=== PATIENT | male | born 1950 ===

== ENCOUNTER 2022-04-23 10:39 | Inpatient (IN) ==
[2022-04-23] MEDS ORDERED: NS 0.9% 1000 ml BAG 1,000 ML IV ONE (11:24)
[2022-04-23 12:04] LABS: ABS Basophils 0.1 10^3/ul (0-0.2); ABS Monocytes 1.3 10^3/ul (0-0.8); ABS Neutrophils 12.3 10^3/ul (1.5-7.7); Hematocrit 47 % (42-52); Hemoglobin 15.8 g/dL (14.0-18.0); Mean Corpuscular HGB Conc 34 g/dL (31-36); Mean Corpuscular Hemoglobin 30 pg (27-31); Mean Corpuscular Volume 89 fL (80-94); Mean Platelet Volume 9.1 fL (7.4-10.4); Nucleated Red Blood Cells % 0.1; Platelet Count 161 10^3/uL (150-450); Red Blood Count 5.31 10^6 /uL (4.18-5.48); Red Cell Distribution Width 15 % (10-15); White Blood Count 14.7 10^3/uL (3.5-10.8)
[2022-04-23 12:45] LABS: Albumin 4.1 g/dL (3.2-5.2); Albumin/Globulin Ratio 1.5 (1-3); Calcium 8.9 mg/dL (8.6-10.3); Globulin 2.8 g/dL (2-4); Potassium 4.3 mmol/L (3.5-5.0); Total Bilirubin 4.4 mg/dL (0.2-1.0); Total Protein 6.9 g/dL (6.4-8.9); eGFR CKD-EPI 59.3 (>60)
[2022-04-23] MEDS ORDERED: Iodixanol (CONTRAST) 320 MG/ML 100 ML SDV IV ONE (13:03)
[2022-04-23 13:36] LABS: High Sensitivity Troponin 1 Hr 16 pg/mL (<20)
[2022-04-23] MEDS ORDERED: ceFOXitin 1 GM in NS 0.9% 50 ML 50 ML IVPB ONE (14:21)
[2022-04-23] MEDS ORDERED: Lactated Ringers 1000 ml BAG 1,000 ML IV ONE (14:47)
[2022-04-23 15:50] LABS: Urine Appearance Clear; Urine Bilirubin Negative (Negative); Urine Blood Trace (Lysed) (Negative); Urine Color Yellow; Urine Glucose Negative (Negative); Urine Ketones Negative (Negative); Urine Nitrite Negative (Negative); Urine Protein 1+ (30 mg/dL) (Negative); Urine Urobilinogen 0.2 (Negative) (Negative); Urine pH 5.5 (5.0-9.0)
[2022-04-23 15:54] LABS: Urine Bacteria Absent (Absent); Urine Red Blood Cell Trace(0-2/hpf) (Absent); Urine Squamous Epithelial Cell Present (Absent); Urine White Blood Cell Trace(0-5/hpf) (Absent)
[2022-04-23] MEDS ORDERED: Morphine 2 MG/ML SYRINGE IV PRN (22:25)
[2022-04-23] MEDS ORDERED: Ondansetron 4 mg VIAL 2 MG/ML 2 ml VIAL IV PRN (22:25)
[2022-04-23] MEDS ORDERED: Dextrose 50% Syringe 50 ml 25 GM/50 ML SYRINGE IV PUSH PRN (22:29)
[2022-04-23] MEDS ORDERED: Lactated Ringers 1000 ml BAG 1,000 ML IV SCH (23:00)
[2022-04-24] MEDS: Heparin 5000 UNITS/ML 1 mL VIAL SUBCUT SCH ×4 (00:15→21:18)
[2022-04-24] MEDS: Lactated Ringers 1000 ml BAG 1,000 ML IV SCH ×2 (02:55→14:35)
[2022-04-24 05:47] LABS: ABS Monocytes 1.1 10^3/ul (0-0.8); ABS Neutrophils 10.7 10^3/ul (1.5-7.7); Eosinophil % 0.3 %; Hematocrit 39 % (42-52); Hemoglobin 12.9 g/dL (14.0-18.0); Lymphocyte % 7.9 %; Mean Corpuscular HGB Conc 34 g/dL (31-36); Mean Corpuscular Hemoglobin 30 pg (27-31); Mean Corpuscular Volume 90 fL (80-94); Mean Platelet Volume 9.2 fL (7.4-10.4); Platelet Count 128 10^3/uL (150-450); Red Blood Count 4.31 10^6 /uL (4.18-5.48); Red Cell Distribution Width 15 % (10-15); White Blood Count 12.9 10^3/uL (3.5-10.8)
[2022-04-24 06:16] LABS: Albumin 3.5 g/dL (3.2-5.2); Albumin/Globulin Ratio 1.5 (1-3); Calcium 8.1 mg/dL (8.6-10.3); Globulin 2.3 g/dL (2-4); Magnesium 1.9 mg/dL (1.9-2.7); Potassium 3.8 mmol/L (3.5-5.0); Total Bilirubin 4.2 mg/dL (0.2-1.0); Total Protein 5.8 g/dL (6.4-8.9); eGFR CKD-EPI 94.3 (>60)
[2022-04-24] MEDS: Pantoprazole VIAL 40 MG VIAL IV SCH (08:39)
[2022-04-24] MEDS ORDERED: Fluticasone HFA 220 mcg(NF) MDI INH SCH (09:00)
[2022-04-24] MEDS: Mometasone 220 MCG MDI INH SCH (20:04)
[2022-04-24] MEDS: Senna TAB 8.6 mg TAB PO SCH (21:13)
[2022-04-24] MEDS: Magnesium Hydroxide LIQ 30 ML UDC PO SCH (21:13)
[2022-04-24] MEDS ORDERED: Morphine 2 MG/ML SYRINGE IV PRN (23:18)
[2022-04-25] MEDS: Heparin 5000 UNITS/ML 1 mL VIAL SUBCUT SCH ×2 (05:24→13:53)
[2022-04-25] MEDS: Lactated Ringers 1000 ml BAG 1,000 ML IV SCH ×2 (05:50→21:11)
[2022-04-25 06:24] LABS: Hematocrit 38 % (42-52); Hemoglobin 12.7 g/dL (14.0-18.0); Mean Corpuscular HGB Conc 34 g/dL (31-36); Mean Corpuscular Hemoglobin 30 pg (27-31); Mean Corpuscular Volume 89 fL (80-94); Mean Platelet Volume 8.8 fL (7.4-10.4); Platelet Count 123 10^3/uL (150-450); Red Blood Count 4.24 10^6 /uL (4.18-5.48); Red Cell Distribution Width 15 % (10-15)
[2022-04-25 06:33] LABS: INR 1.27 (0.89-1.11)
[2022-04-25 07:18] LABS: Albumin 3.3 g/dL (3.2-5.2); Albumin/Globulin Ratio 1.4 (1-3); Calcium 8.1 mg/dL (8.6-10.3); Direct Bilirubin 0.8 mg/dL (0.03-0.18); Globulin 2.3 g/dL (2-4); Indirect Bilirubin 2.5 mg/dL (0.3-1.0); Magnesium 2.1 mg/dL (1.9-2.7); Total Bilirubin 3.3 mg/dL (0.2-1.0); Total Protein 5.6 g/dL (6.4-8.9); eGFR CKD-EPI 95.7 (>60)
[2022-04-25] MEDS: Mometasone 220 MCG MDI INH SCH ×2 (07:54→19:35)
[2022-04-25] MEDS: Pantoprazole VIAL 40 MG VIAL IV SCH (08:34)
[2022-04-25] MEDS: Magnesium Hydroxide LIQ 30 ML UDC PO SCH ×2 (08:36→21:06)
[2022-04-25] MEDS ORDERED: ceFAZolin 2 GM PREMIX 2 GM/50 ML BAG IVPB ONE (13:00)
[2022-04-25] MEDS: Senna TAB 8.6 mg TAB PO SCH (21:06)
[2022-04-26 05:40] LABS: Hematocrit 38 % (42-52); Hemoglobin 13.1 g/dL (14.0-18.0); Mean Corpuscular HGB Conc 35 g/dL (31-36); Mean Corpuscular Hemoglobin 31 pg (27-31); Mean Corpuscular Volume 89 fL (80-94); Mean Platelet Volume 8.8 fL (7.4-10.4); Platelet Count 142 10^3/uL (150-450); Red Blood Count 4.27 10^6 /uL (4.18-5.48); Red Cell Distribution Width 15 % (10-15); White Blood Count 9.5 10^3/uL (3.5-10.8)
[2022-04-26 05:58] LABS: Calcium 8.2 mg/dL (8.6-10.3); Magnesium 2.2 mg/dL (1.9-2.7); Potassium 4.3 mmol/L (3.5-5.0); eGFR CKD-EPI 97.3 (>60)
[2022-04-26] MEDS ORDERED: Bupivacaine 0.25% SDV 30 ML ONE (07:12)
[2022-04-26] MEDS ORDERED: Propofol 10 MG/ML 20 ML BTL ONE (07:14)
[2022-04-26] MEDS ORDERED: Lidocaine 2% PF 5 ML VIAL ONE (07:14)
[2022-04-26] MEDS ORDERED: Midazolam 2 mg/2 ml VIAL 1 mg/ml 2 ml VIAL (2 mg) ONE (07:14)
[2022-04-26] MEDS ORDERED: fentaNYL 250 mcg/5 ml 50 MCG/ML 5 ml VIAL (250 MCG) ONE (07:14)
[2022-04-26] MEDS ORDERED: Rocuronium 50 mg VIAL 10 mg/ml 5 ml VIAL (50 mg) ONE (07:14)
[2022-04-26] MEDS: Mometasone 220 MCG MDI INH SCH (07:20)
[2022-04-26] MEDS ORDERED: ceFAZolin 2 GM in NS PREMIX 2 GM/100 ML BAG IVPB ONE (07:33)
[2022-04-26] MEDS ORDERED: Prochlorperazine 5 mg/ml 2 ml VIAL (10 mg) IV PRN (07:35)
[2022-04-26] MEDS ORDERED: HYDROmorphone 1 MG/1 ML SYRINGE IV PRN (07:35)
[2022-04-26] MEDS ORDERED: Buffered Lidocaine 1% SYRIN 1 ml INTRADERM ONE (07:35)
[2022-04-26] MEDS ORDERED: Naloxone 0.4 mg VIAL 0.4 mg/ml 1 ml VIAL IV PRN (07:35)
[2022-04-26] MEDS ORDERED: Lactated Ringers 1000 ml BAG 1,000 ML IV SCH (08:00)
[2022-04-26] MEDS ORDERED: Ondansetron 4 mg VIAL 2 MG/ML 2 ml VIAL ONE (08:17)
[2022-04-26] MEDS ORDERED: Dexamethasone IV 4 MG/ML VIAL 1 ml VIAL ONE (08:17)
[2022-04-26] MEDS ORDERED: Acetaminophen IV 1 GM/100ML 1,000 MG/100 ML BAG IV ONE (08:18)
[2022-04-26] MEDS ORDERED: HYDROmorphone 0.5 MG/0.5 ML SYRINGE ONE ×2 (08:36→08:47)
[2022-04-26] MEDS ORDERED: Metoprolol Tartrate 5 mg VIAL 5 ml VIAL (1 mg/ml) ONE (08:51)
[2022-04-26] MEDS: Magnesium Hydroxide LIQ 30 ML UDC PO SCH (12:15)
[2022-04-26] MEDS: Pantoprazole VIAL 40 MG VIAL IV SCH (12:28)
[2022-04-26 14:21] VITALS: BP 143/75
== END 2022-04-26 15:50 | disposition home or self-care (01) | DRG 418 ==
LOC: ED 10:39 → INTOOBSV 22:22 → EDHOLD 22:22 → SUATTDRO 22:22 → EDHOLD 04-24 12:46 → SSU 04-24 13:18
PROVIDERS: ADMIT Internal Medicine; ATTEND Internal Medicine